=== PATIENT | female | born 1950 | race Caucasian/White ===

== ENCOUNTER → 2017-03-16 | Outpatient (CLI) | payer OTHER ==
[2015-02-06 09:50] VITALS: BP 115/65
--- NOTE | 2017-03-16 15:36 | RAD ---
EXAM: DIGITAL SCREEN BILAT W/CAD HISTORY: Routine Screening. COMPARISON: None available Standard mammographic views are obtained of the bilateral breasts. This study was interpreted with the benefit of Computerized Aided Detection (CAD). FINDINGS: The breast parenchyma Is heterogenously dense, which could reduce sensitivity of mammography. Breast parenchyma level III.. There is no definite suspicious spiculated mass or worrisome cluster of microcalcifications. Mild benign-appearing calcification of left breast. IMPRESSION: No definite suspicious mass. BI-RADS CATEGORY: 2 BENIGN FINDING RECOMMENDED FOLLOW-UP: 12M 12 MONTH FOLLOW-UP PQRS compliance statement: Patient information was entered into a reminder system with a target due date for the next mammogram. Mammography is a sensitive method for finding small breast cancers, but it does not detect them all and is not a substitute for careful clinical examination. A negative mammogram does not negate a clinically suspicious finding and should not result in delay in biopsying a clinically suspicious abnormality. "Our facility is accredited by the [employer] Mammography Program."
== END | disposition home or self-care (01) ==
LOC: MAMMO 13:52
PROVIDERS: ATTEND Family Medicine
DX: Z12.31 Encounter for screening mammogram for malignant neoplasm of breast (principal); Z01.419 Encounter for gynecological examination (general) (routine) without abnormal findings
CPT/HCPCS: G0202; 77067

== ENCOUNTER 2017-06-09 09:02 | Emergency (ER) | payer OTHER ==
[~2017-06-09] VITALS: Ht 165.1 cm; Wt 66.2 kg
--- NOTE | 2017-06-09 09:17 | EKG ---
[facility] [address] [place] [address] Test Date: 2017-06-09 Test Time: 09:12:31 Pat Name: NORM COVINGTON Department: Room: Gender: Female [employer] C[employer] Operator: : [id number] Requested By: DAVID FLETCHER Order Number: [id number] Reading MD: Erna Hernandez Measurements Intervals [place] Rate: 74 P: 61 NH: 144 QRS: 65 QRSD: 86 T: 59 QT: 380 QTc: 427 Interpretive Statements SINUS RHYTHM VENTRICULAR PREMATURE COMPLEX(ES) Electronically Signed On 06-13-2017 15:11:33 CDT by Erna Hernandez
--- NOTE | 2017-06-09 09:22 | PHYS DOC ---
Past Medical History Past Medical History: Anxiety, Bronchitis, COPD, Depression, Other Additional Past Medical Histor: emphysema Past Surgical History: Other Additional Past Surgical Histo: bladder sx Alcohol Use: None Drug Use: None Adult General Chief Complaint Chief Complaint: DIZZY/LIGHT HEADED HPI HPI Patient is a 66 year old female who presents with dizziness and headache. Patient had a mechanical fall down "a few" stairs yesterday, she did strike her head on concrete, did not have loss of consciousness. She immediately had some blurry vision that self resolved. She was then able to ambulate around the house but did have pain. She took ibuprofen and went to bed. She states she slept poorly and woke up this morning with sensation that the room is spinning, had nausea and headache. The nausea and vertigo has since improved but patient still has headache. She has some left shoulder pain as well. She denies that she takes any blood thinners. Review of Systems Review of Systems Constitutional: Denies fever or chills [] Eyes: Denies change in visual acuity, redness, or eye pain [] HENT: Denies nasal congestion or sore throat [] Respiratory: Denies cough or shortness of breath [] Cardiovascular: Denies chest pain GI: Denies abdominal pain, nausea, vomiting, bloody stools or diarrhea [] : Denies dysuria or hematuria [] Musculoskeletal: Denies back pain Integument: Denies rash or skin lesions [] Neurologic: Denies focal weakness or sensory changes [] Current Medications Current Medications Current Medications Medications (Trade) Dose Ordered Sig/Jose Start Time Stop Time Status Last Admin Dose Admin Ketorolac Tromethamine (Toradol Im) 60 mg 1X ONCE 06/09/17 10:15 06/09/17 10:16 DC 06/09/17 10:17 60 MG Meclizine HCl (Antivert) 25 mg 1X ONCE 06/09/17 09:45 06/09/17 09:46 DC 06/09/17 10:04 25 MG Ondansetron HCl (Zofran Odt) 4 mg 1X ONCE 06/09/17 10:15 06/09/17 10:16 DC 06/09/17 10:17 4 MG Allergies Allergies Allergies Coded Allergies Type Severity Reaction Last Updated Verified codeine Allergy Intermediate 02/05/15 Yes Physical Exam Physical Exam Constitutional: Well developed, well nourished, no acute distress, non-toxic appearance. [] HENT: Normocephalic, atraumatic, bilateral external ears normal, oropharynx moist, no oral exudates, nose normal. [] Eyes: PERRLA, EOMI, conjunctiva normal, no discharge. [] Neck: Normal range of motion, no Pops or tenderness, supple, no stridor. [] Cardiovascular:Heart rate regular with regular rhythm, no murmur [] Lungs & Thorax: Bilateral breath sounds clear to auscultation, no wheeze or crackles Abdomen: Bowel sounds normal, soft, no tenderness, no masses, no pulsatile masses. [] Skin: Warm, dry, no erythema, no rash. [] Back: No midline step-off sore tenderness, no CVA tenderness. [] Extremities: Tender to palpation in the posterior left shoulder with a bruise noted, no humeral tenderness, remaining extremities nontender nondeformed Neurologic: Alert and oriented X 3, normal motor function, normal sensory function, no focal deficits noted. [] Current Patient Data Vital Signs Vital Signs Date Time Temp Pulse Resp B/P (MAP) Pulse Ox O2 Delivery O2 Flow Rate FiO2 06/09/17 09:10 97.8 73 18 122/73 (89) 97 Room Air 97.8 EKG EKG 74 bpm, sinus, normal axis, normal intervals, no ST elevation or depression, 1 PVC present, nonischemic T waves, interpreted by me[] Radiology/Procedures Radiology/Procedures CT head: Indication fall. Head injury. Closed head injury. Noncontrast images of the head were obtained. Note is made of a previous examination 11/24/2012. The calvarium appears unremarkable. The visualized paranasal sinuses appear normal. There is no subdural or epidural hematoma. There is no mass or midline shift. No hemorrhage is seen. No acute intracranial finding is seen. IMPRESSION: No acute or significant finding seen on noncontrast CT images of the head Shoulder: Left shoulder, 3 views, 06/09/2017: History: Fall, this, pain The bony structures are demineralized. No fracture or dislocation is identified. IMPRESSION: No acute left shoulder abnormality is detected. Course & Med Decision Making Course & Med Decision Making Pertinent Labs and Imaging studies reviewed. (See chart for details) She was given by mouth meclizine, EKG performed, CT head and left shoulder. No acute Findings on radiographs. Patient with pain and IM was given along with Zofran. Patient feeling better and improved enough to go home. Discharged with ibuprofen and Flexeril, return precautions given. Dragon Disclaimer Dragon Disclaimer This electronic medical record was generated, in whole or in part, using a voice recognition dictation system. Departure Departure Impression: Primary Impression: Closed head injury Additional Impressions: Vertigo Shoulder pain Disposition: HOME, SELF-CARE Condition: IMPROVED Referrals: DESTINY RODRIGUES MD (PCP) Scripts Cyclobenzaprine Hcl (CYCLOBENZAPRINE HCL) 5 Mg Tablet 5 MG PO PRN TID Y for MUSCLE SPASMS, #15 TAB May cause sedation Prov: DAVID FLETCHER MD 06/09/17 Ibuprofen (IBUPROFEN) 600 Mg Tablet 600 MG PO PRN Q6HRS Y for PAIN, #20 TAB take with food or milk Prov: DAVID FLETCHER MD 06/09/17 Problem Qualifiers DAVID FLETCHER MD Jun 09, 2017 09:22
[2017-06-09] MEDS ORDERED: MECLIZINE HCL 12.5 MG TABLET. PO ONE (09:45)
--- NOTE | 2017-06-09 09:47 | RAD ---
Left shoulder, 3 views, 06/09/2017: History: Fall, this, pain The bony structures are demineralized. No fracture or dislocation is identified. IMPRESSION: No acute left shoulder abnormality is detected.
--- NOTE | 2017-06-09 09:48 | RAD ---
Indication fall. Head injury. Closed head injury. Noncontrast images of the head were obtained. Note is made of a previous examination 11/24/2012. The calvarium appears unremarkable. The visualized paranasal sinuses appear normal. There is no subdural or epidural hematoma. There is no mass or midline shift. No hemorrhage is seen. No acute intracranial finding is seen. IMPRESSION: No acute or significant finding seen on noncontrast CT images of the head PQRS Compliance Statement: One or more of the following individualized dose reduction techniques were utilized for this examination: 1. Automated exposure control 2. Adjustment of the mA and/or kV according to patient size 3. Use of iterative reconstruction technique
[2017-06-09] MEDS ORDERED: KETOROLAC 60 MG/2 ML INJ. IM ONE (10:15)
[2017-06-09] MEDS ORDERED: ONDANSETRON ODT 4 MG TAB.RAPDIS. PO ONE (10:15)
[2017-06-09 11:02] VITALS: BP 111/57
[2017-06-09] MEDS ORDERED: IBUP-1007 PO (11:13)
[2017-06-09] MEDS ORDERED: CYCL5TAB PO (11:13)
== END 2017-06-09 11:20 | disposition home or self-care (01) ==
LOC: ER 09:02
DX: S09.90XA Unspecified injury of head, initial encounter (principal); R42 Dizziness and giddiness; M25.512 Pain in left shoulder; J43.9 Emphysema, unspecified; F41.9 Anxiety disorder, unspecified; F32.9 Major depressive disorder, single episode, unspecified; Z88.5 Allergy status to narcotic agent; W10.9XXA Fall (on) (from) unspecified stairs and steps, initial encounter; Y93.89 Activity, other specified; Y99.8 Other external cause status; Y92.89 Other specified places as the place of occurrence of the external cause
CPT/HCPCS: 70450; 73030; 93005; 96372; 99284; J1885; J8597; Q0162

== ENCOUNTER 2017-09-22 19:16 | Emergency (ER) | payer OTHER ==
[2017-09-22 21:09] LABS: ADD MAN DIFF? NO
[2017-09-22 21:12] LABS: BASO # 0.1 x10^3/uL (0.0-0.2); BASO % 1 % (0-3); BILIRUBIN,URINE NEGATIVE (NEG); CLARITY,URINE CLOUDY; COLOR,URINE YELLOW; EOS # 0.2 x10^3/uL (0.0-0.7); EOS % 2 % (0-3); GLUCOSE,URINE NEGATIVE (NEG); HEMATOCRIT 40.2 % (36.0-47.0); HEMOGLOBIN 13.6 g/dL (12.0-15.5); LYMPH # 2.3 x10^3/uL (1.0-4.8); LYMPH % 29 % (24-48); MEAN CORPUSCULAR HEMOGLOBIN 31 pg (25-35); MEAN CORPUSCULAR HGB CONC 34 g/dL (31-37); MEAN CORPUSCULAR VOLUME 92 fL (79-100); MONO # 0.7 x10^3/uL (0.0-1.1); MONO % 9 % (0-9); NEUT # 4.7 x10^3uL (1.8-7.7); NEUT % 59 % (31-73); NITRITE,URINE NEGATIVE (NEG); PH,URINE 5.5; PLATELET COUNT 193 x10^3/uL (140-400); PROTEIN,URINE NEGATIVE (NEG-TRACE); RED BLOOD COUNT 4.36 x10^6/uL (3.50-5.40); RED CELL DISTRIBUTION WIDTH 13.3 % (11.5-14.5); UROBILINOGEN,URINE 0.2 mg/dL (0.2 mg/dL); WHITE BLOOD COUNT 7.9 x10^3/uL (4.0-11.0)
[2017-09-22 21:21] LABS: BACTERIA,URINE MODERATE /HPF (0-FEW); PARTIAL THROMBOPLASTIN TIME 22 SEC (24-38); PROTHROMBIN TIME PATIENT 12.8 SEC (11.7-14.0); SQUAMOUS EPITHELIAL CELL,UR MANY /LPF; WBC,URINE 20-40 /HPF (0-4)
[2017-09-22 21:22] LABS: ANION GAP 10 (6-14); BLOOD UREA NITROGEN 20 mg/dL (7-20); BUN/CREATININE RATIO 25 (6-20); CALCIUM 8.7 mg/dL (8.5-10.1); CARBON DIOXIDE 25 mmol/L (21-32); CHLORIDE 105 mmol/L (98-107); CREATININE 0.8 mg/dL (0.6-1.0); GFR 71.8; GLUCOSE 115 mg/dL (70-99); POTASSIUM 3.7 mmol/L (3.5-5.1); SODIUM 140 mmol/L (136-145)
[2017-09-22 21:28] LABS: ALBUMIN 3.7 g/dL (3.4-5.0); ALBUMIN/GLOBULIN RATIO 1.2 (1.0-1.7); ALK PHOS 56 U/L (46-116); ALT (SGPT) 20 U/L (14-59); AST (SGOT) 12 U/L (15-37); LIPASE 180 U/L (73-393); TOTAL BILIRUBIN 0.3 mg/dL (0.2-1.0); TOTAL PROTEIN 6.7 g/dL (6.4-8.2)
[2017-09-22] MEDS ORDERED: CONTRAST GIVEN MC (21:30)
[2017-09-22] MEDS: IOHEXOL 300 MG/ML 100ML VIAL. IV (21:34)
[2017-09-22] MEDS: IV NORMAL SALINE 1000ML BAG 1,000 ML IV (21:42)
[2017-09-22] MEDS: fentaNYL PF VIAL 100 MCG/2 ML VIAL IV (21:42)
== END 2017-09-22 22:48 | disposition home or self-care (01) ==
LOC: ER 19:16
DX: J18.9 Pneumonia, unspecified organism (principal); R10.30 Lower abdominal pain, unspecified; J44.9 Chronic obstructive pulmonary disease, unspecified; E78.00 Pure hypercholesterolemia, unspecified; Z88.5 Allergy status to narcotic agent
CPT/HCPCS: 36415; 74177; 80053; 81001; 83690; 85025; 85610; 85730; 87086; 96361; 96374; 99285-25; J3010; J7030; Q9967

== ENCOUNTER → 2018-10-05 | Outpatient (CLI) | payer MEDICAID, OTHER ==
[2017-09-22 22:10] VITALS: BP 139/63
[~2018-10-05] MED LIST: AZIT250T6 PO; CIPR250T30 PO; CYCL5TAB PO; IBUP-1007 PO
--- NOTE | 2018-10-05 09:38 | RAD ---
Examination: Ultrasound abdomen complete HISTORY: History of left flank pain COMPARISON: None available FINDINGS: The echogenicity of the liver grossly appears unremarkable. The visualized pancreas, aorta, IVC is within normal limits of dimension. The visualized spleen appears unremarkable. The right kidney measures 11 cm in length. Left kidney measures 12.1 cm in length. The gallbladder is mildly distended. No evidence of gallstones identified. The common bile duct measures 8.2 mm in transverse dimension. IMPRESSION: Mild dilated common bile duct measuring 8.2 mm in transverse dimension. Distal common bile duct obstruction is not completely excluded. Correlate with liver function tests. Electronically signed by: Micha Stone MD (10/05/2018 9:33 AM) [facility]
== END | disposition home or self-care (01) ==
LOC: US 07:32
PROVIDERS: ATTEND Family Medicine
DX: K82.9 Disease of gallbladder, unspecified (principal); K83.8 Other specified diseases of biliary tract
CPT/HCPCS: 76700

== ENCOUNTER → 2018-10-20 | Outpatient (CLI) | payer OTHER ==
[2017-09-22 22:10] VITALS: BP 139/63
--- NOTE | 2018-10-20 12:55 | RAD ---
Examination: 2 views of the chest and 2 views of the lumbar spine HISTORY: History of low back pain, shortness of breath COMPARISON: None available FINDINGS: The cardiomediastinal silhouette grossly appears unremarkable. There is no acute infiltrate or visualized pneumothorax identified. Mild degenerative changes thoracic spine. The lumbar vertebral body heights are maintained. Minimal anterolisthesis of L4 on L5. Mild intervertebral disc height loss identified throughout the lumbar spine. Moderate intervertebral disc height loss identified in the lumbar spine. Aortic atherosclerosis. IMPRESSION: 1. No acute cardiopulmonary findings. 2. Moderate degenerative changes lumbar spine. Electronically signed by: Micha Stone MD (10/20/2018 12:52 PM) [facility]
== END | disposition home or self-care (01) ==
LOC: RAD 10:54
DX: M47.896 Other spondylosis, lumbar region (principal); I70.0 Atherosclerosis of aorta; M43.16 Spondylolisthesis, lumbar region; J44.9 Chronic obstructive pulmonary disease, unspecified
CPT/HCPCS: 71046; 72100